=== PATIENT | male | born 1980 | race Caucasian/White ===

== ENCOUNTER 2018-11-01 19:04 | Observation (INO) | payer OTHER ==
[~2018-11-01] VITALS: Ht 172.7 cm; Wt 105.9 kg
[2018-11-01] MEDS ORDERED: NITROGLYCERIN 2% 1 GM OINT PKT TD STA (20:39)
[2018-11-01] MEDS ORDERED: morphine 4 MG/ML VIAL IV STA (20:39)
[2018-11-01] MEDS ORDERED: ONDANSETRON 4 MG INJ IV STA (20:39)
[2018-11-01] MEDS ORDERED: ASPIRIN 325 MG TAB PO STA (20:39)
[2018-11-01] MEDS ORDERED: NITROGLYCERIN (SL) 0.4 MG TAB SL PRN (21:00)
--- NOTE | 2018-11-01 22:07 | ERD ---
ER Documentation Chief Complaint Chief Complaint pressure-like CP since 4PM w/ arm pain, dizziness, REID HPI This is a 38-year-old man who has a history of cardiac disease and all the males in his family. He has no other medical problems other than borderline cholesterol. He says around 4 PM today he was having some substernal chest pressure radiating down the left arm with slight dizziness and some shortness of breath. He has no syncope no recent exertional angina. He says currently he is still having pain but is better. ROS All systems reviewed and are negative except as per history of present illness. Allergies Allergies: Coded Allergies: No Known Allergy (Unverified , 11/01/18) FmHx Family History: No coronary disease Physical Exam Vitals Vital Signs Date Temp Pulse Resp B/P (MAP) Pulse Ox O2 O2 Flow FiO2 Time Delivery Rate 11/01/18 98.2 85 16 125/60 100 19:12 (81) Physical Exam Const: Well-developed, well-nourished Head: Atraumatic, normocephalic Eyes: Normal Conjunctiva, PERRLA, EOMI, normal sclera, no nystagmus ENT: Normal External Ears, Nose and Mouth, moist mucus membranes. Neck: Full range of motion. No meningismus, no lymphadenopathy. Resp: Clear to auscultation bilaterally, no wheezing, rhonchi, rales Cardio: Regular rate and rhythm, no murmurs, S1 S2 present Abd: Soft, non tender x 4, non distended. Normal bowel sounds, no guarding or rebound, no pulsitile abdominal masses or bruits Skin: No petechiae or rashes, no ecchymosis , no maculopapular rash Back: No midline or flank tenderness Ext: No cyanosis, or edema, FROM x 4, normal inspection, neurovascularly intact x 4 Neur: Awake and alert, STR 5/5 x 4, sensation intact x 4, no focal findings, cerebellum intact Psych: Normal Mood and Affect Result Diagram: 11/01/18210411/01/182104 Results 24 hrs Laboratory Tests Test 11/01/18 21:05 White Blood Count 8.5 10^3/ul Red Blood Count 5.74 10^6/ul Hemoglobin 14.0 g/dl Hematocrit 43.9 % Mean Corpuscular Volume 76.5 fl Mean Corpuscular Hemoglobin 24.4 pg Mean Corpuscular Hemoglobin Concent 31.9 g/dl Red Cell Distribution Width 21.5 % Platelet Count 249 10^3/UL Mean Platelet Volume 11.8 fl Immature Granulocytes % 0.500 % Neutrophils % 68.6 % Lymphocytes % 18.0 % Monocytes % 10.1 % Eosinophils % 2.1 % Basophils % 0.7 % Nucleated Red Blood Cells % 0.0 /100WBC Immature Granulocytes # 0.040 10^3/ul Neutrophils # 5.8 10^3/ul Lymphocytes # 1.5 10^3/ul Monocytes # 0.9 10^3/ul Eosinophils # 0.2 10^3/ul Basophils # 0.1 10^3/ul Nucleated Red Blood Cells # 0.0 10^3/ul Sodium Level 143 mmol/L Potassium Level 4.1 mmol/L Chloride Level 102 mmol/L Carbon Dioxide Level 30 mmol/L Anion Gap 11 Blood Urea Nitrogen 20 mg/dl Creatinine 1.49 mg/dl Est Glomerular Filtrat Rate mL/min 53 mL/min Glucose Level 96 mg/dl Calcium Level 9.4 mg/dl Total Bilirubin 0.2 mg/dl Direct Bilirubin 0.00 mg/dl Indirect Bilirubin 0.2 mg/dl Aspartate Amino Transf (AST/SGOT) 23 IU/L Alanine Aminotransferase (ALT/SGPT) 18 IU/L Alkaline Phosphatase 97 IU/L Troponin I 0.066 ng/ml Total Protein 7.6 g/dl Albumin 4.3 g/dl Globulin 3.30 g/dl Albumin/Globulin Ratio 1.30 Current Medications Medications Dose Sig/Lynette Start Time Status Last (Trade) Ordered Route PRN Stop Time Admin Dose Reason Admin Aspirin 325 mg ONCE STAT 11/01/18 DC 11/01/18 (Aspirin) PO 20:39 11/01/18 21:09 20:40 1 inch ONCE STAT 11/01/18 DC 11/01/18 Nitroglycerin TD 20:39 11/01/18 21:09 20:40 (Nitroglyceri n 2% Oint) 1 tab Q5M UP TO 3 11/01/18 11/01/18 Nitroglycerin DOSES PRN 21:00 21:09 SL CHEST (Nitroglyceri PAIN n (Sl Tab) 0.4 Mg) Morphine 4 mg ONCE STAT 11/01/18 DC 11/01/18 Sulfate IV 20:39 11/01/18 21:08 (morphine) 20:40 Ondansetron 4 mg ONCE STAT 11/01/18 DC 11/01/18 HCl (Zofran IV 20:39 11/01/18 21:08 Inj) 20:40 Procedures/MDM MR #: [id number] DOS: 11/01/182038 Ordering MD: JORDEN JOSE DO Location: E/R Room/Bed: PROCEDURE: XR Chest. CLINICAL INDICATION: Chest pain. TECHNIQUE: Portable AP semi erect view of the chest was obtained. COMPARISON: None. FINDINGS: The cardiomediastinal silhouette is within normal limits. The lungs are clear. There is no evidence for pleural effusion, pneumothorax or pulmonary vascular congestion. The osseous structures are intact with no evidence for acute abnormality. RPTAT:HJJR IMPRESSION: No evidence for acute intrathoracic pathology. Physician Gareth Date Time Electronically viewed and signed by Pierre Perez Physician on 11/01/2018 21:30 JR/ CC: JORDEN JOSE DO [id number] EKG: Rate/Rhythm: Sinus rhythm, normal-hyperacute T wave in lead V2 QRS, ST, QT: NORMAL SC, QRS, QT] Impression: Abnormal EKG Patient's troponin is residential positive. He is better after some sublingual nitro here and aspirin. Cardiac Admit MDM: Patient's symptoms are concerning for cardiac cause will require inpatient workup and continuous monitoring. Further w/u for ischemia, arrhythmia, PE or dissection will be deferred to the inpatient team. Departure Diagnosis: Primary Impression: Chest pain Chest pain type: unspecified Qualified Codes: R07.9 - Chest pain, unspecified Condition: Stable JORDEN JOSE DO Nov 01, 2018 22:07
--- NOTE | 2018-11-01 22:25 | HP ---
Date/Time of Note Date/Time of Note DATE: 11/01/18 TIME: 22:25 Assessment/Plan Lines/Catheters IV Catheter Type (from Nrs): Peripheral IV Assessment/Plan Assessment/Plan 38-year-old male with history of ulcerative colitis, depression/anxiety, Asperger's syndrome, history of suicide attempts admitted for chest pain, need to rule out ACS. Father had an ND at the age of 52. His brother, who is patient's uncle has a history of multiple cardiac stents starting when he was in his early 50s PLAN -Continue telemetry monitoring -Trend troponin -Supplemental oxygen, aspirin, statin. As needed nitro -2D echo and cardiology consult -Continue home meds. Adjust as needed -Monitor kidney function closely. Renal ultrasound and nephrology consult as needed Result Diagram: 11/01/18210411/01/182104 Results 24hrs Laboratory Tests Test 11/01/18 21:05 White Blood Count 8.5 Red Blood Count 5.74 Hemoglobin 14.0 Hematocrit 43.9 Mean Corpuscular Volume 76.5 L Mean Corpuscular Hemoglobin 24.4 L Mean Corpuscular Hemoglobin Concent 31.9 L Red Cell Distribution Width 21.5 H Platelet Count 249 Mean Platelet Volume 11.8 H Immature Granulocytes % 0.500 H Neutrophils % 68.6 Lymphocytes % 18.0 Monocytes % 10.1 Eosinophils % 2.1 Basophils % 0.7 Nucleated Red Blood Cells % 0.0 Immature Granulocytes # 0.040 H Neutrophils # 5.8 Lymphocytes # 1.5 Monocytes # 0.9 Eosinophils # 0.2 Basophils # 0.1 Nucleated Red Blood Cells # 0.0 Sodium Level 143 Potassium Level 4.1 Chloride Level 102 Carbon Dioxide Level 30 Anion Gap 11 Blood Urea Nitrogen 20 Creatinine 1.49 H Est Glomerular Filtrat Rate mL/min 53 L Glucose Level 96 Calcium Level 9.4 Total Bilirubin 0.2 Direct Bilirubin 0.00 Indirect Bilirubin 0.2 Aspartate Amino Transf (AST/SGOT) 23 Alanine Aminotransferase (ALT/SGPT) 18 Alkaline Phosphatase 97 Troponin I 0.066 Total Protein 7.6 Albumin 4.3 Globulin 3.30 H Albumin/Globulin Ratio 1.30 HPI/ROS Admit Date/Time Admit Date/Time Hx of Present Illness This is a 38-year-old male with history of ulcerative colitis, depression/anxiety, Asperger's syndrome, history of suicide attempts who presents the ER complaining of chest pain. Chest pain is mainly left-sided with radiation to the left arm. Started a few hours prior to arrival to the ER. Also reported lightheadedness/dizziness and minimal shortness of breath. Pain is located in the left lateral chest with radiation to the left arm. Denied similar symptoms in the past. Patient is accompanied by his and father we re at the bedside. stated that her, the day before, patient was binge drinking. When presented to ER, vitals were stable. Initial troponin negative. EKG shows T wave abnormality in lead V2. Chest x-ray no acute findings. Initial creatinine about 1.5. Denied a history of kidney disease. He said he had a lab work about a week ago, but he does not know the results. PMH/Family/Social Past Medical History Medications Current Medications Nitroglycerin (Nitroglycerin (Sl Tab) 0.4 Mg) 1 tab Q5M UP TO 3 DOSES PRN SL CHEST PAIN Last administered on 11/01/18at 21:09; Admin Dose 1 TAB; Start 11/01/18 at 21:00 Ondansetron HCl (Zofran Inj) 4 mg ER BRIDGE PRN IV NAUSEA AND/OR VOMITING; Start 11/01/18 at 22:30; Stop 11/02/18 at 22:29 Acetaminophen (Tylenol Tab) 650 mg ER BRIDGE PRN PO MILD PAIN(1-3)OR ELEVATED TEMP; Start 11/01/18 at 22:30; Stop 11/02/18 at 22:29 Coded Allergies: diazepam (Verified Adverse Reaction, Unknown, 11/02/18) ELEVATED HEART RATE Social History Smoking Status: Former smoker Exam/Review of Systems Vital Signs Vitals Vital Signs Date Temp Pulse Resp B/P (MAP) Pulse Ox O2 O2 Flow FiO2 Time Delivery Rate 11/01/18 98.2 85 16 125/60 100 19:12 (81) Exam Constitutional: alert, oriented, well developed Head: normocephalic, atraumatic Eyes: EOMI, PERRL Respiratory: clear to auscultation, normal air movement Cardiovascular: regular rate and rhythm, nl pulses Gastrointestinal: soft, non-tender Musculoskeletal: other (Pain elicited on palpation of the left lateral chest.) Extremities: normal pulses YAAKOV RUST MD Nov 01, 2018 22:25
[2018-11-01] MEDS ORDERED: ACETAMINOPHEN 325 MG TAB PO PRN ×2 (22:30)
[2018-11-01] MEDS ORDERED: ALBUTEROL/IPRATROPIUM (NEB) 3 ML AMP HHN PRN (22:30)
[2018-11-01] MEDS ORDERED: ONDANSETRON 4 MG INJ IV PRN ×2 (22:30)
[2018-11-01] MEDS ORDERED: NACL 0.9% 3 ML SYG IV SCH (22:30)
[2018-11-01 23:44] VITALS: PULSE 72
[2018-11-01 23:45] VITALS: BP 106/63; PULSE 73; RESP 18; Ht 172.7 cm; Wt 105.9 kg
[2018-11-02] VITALS (11 sets, daily range): BP systolic 98–114; BP diastolic 56–65; PULSE 62–85; RESP 17–19
[2018-11-02] MEDS ORDERED: VIAG25 PO (00:26)
[2018-11-02] MEDS: NITROGLYCERIN (SL) 0.4 MG TAB SL PRN ×2 (05:58→06:21)
--- NOTE | 2018-11-02 07:00 | NUR ---
EOSS: Pt resting comfortably in stable condition. Pt a/o X4 and on room air. VS stable. Will endorse to oncoming RN.
[2018-11-02] MEDS ORDERED: ASPIRIN 81 MG TAB PO SCH (09:00)
[2018-11-02] MEDS ORDERED: HEPARIN 5,000 UNIT/1 ML VIAL SC SCH (09:00)
[2018-11-02] MEDS ORDERED: SOD FERRIC GLUC COMPLX 125 MG in SOD CHLORIDE 0.9% 100 ML IVPB ONE (13:00)
--- NOTE | 2018-11-02 13:46 | CONS ---
DATE OF ADMISSION: 11/01/2018 DATE OF CONSULTATION: 11/02/2018 TYPE OF CONSULTATION: Cardiology. REASON FOR CONSULTATION: Chest pain, assess for acute coronary syndrome. REQUESTING PHYSICIAN: Donn Bean MD, from the hospitalist service. HISTORY OF PRESENT ILLNESS: Mr. Frias is a 38-year-old male with a history of ulcerative colitis , anxiety, Asperger's syndrome, prior suicidal attempt, significant family history of early cardiovas cular disease with his father having AR and uncle who had an AR in their 50s, who presented with comp laints of substernal chest pain and arm pain. The patient describes the arm pain as shooting down hi s arms, occurring at rest and the chest pain described as a tightness to pressure-like sensation occu rring for hours before admission. Upon arrival, temperature was 98.2, blood pressure 125/60, pulse 8 5, respiratory rate 16, satting 100%. The patient's labs revealed a sodium of 143, potassium 4.1, cr eatinine 1.49, BUN of 20, AST 23, ALT 18, troponin negative, albumin 4.3. TSH 2.76. LDL 121, HDL 45 . White blood cell count 8.5, hemoglobin 14, platelet count 249. The patient underwent a chest x-ra y revealing no evidence of acute intrathoracic pathology. The patient's electrocardiogram revealed n ormal sinus rhythm at a rate of 84, normal axis, normal intervals with nonspecific ST-T wave abnormal ities. The patient was subsequently admitted to the floor and since admit to floor has had 2 further troponins returned both negative. The patient denies chest pain ongoing at this time. PAST MEDICAL HISTORY: As above in HPI. MEDICATIONS CURRENTLY IN HOSPITAL: 1. Aspirin 81 mg daily. 2. Heparin 5000 subQ q.12. 3. Zofran p.r.n. 4. Tylenol p.r.n. 5. Nitroglycerin p.r.n. 6. DuoNeb p.r.n. ALLERGIES: VALIUM. SOCIAL HISTORY: No current tobacco. Social EtOH. No illicit drug use. FAMILY HISTORY: No history of sudden cardiac or early CAD. REVIEW OF SYSTEMS: As above in HPI. CONSTITUTIONAL: No fevers, chills. PULMONARY: No current shortness of breath. CARDIOVASCULAR: Intermittent chest pain. GASTROINTESTINAL: No vomiting. GENITOURINARY: No hematuria. MUSCULOSKELETAL: Degenerative joint disease. PSYCHIATRIC: Positive depression, anxiety. NEUROLOGIC: No documented history of CVA. ENDOCRINE: No documented history of diabetes mellitus. PHYSICAL EXAMINATION: VITAL SIGNS: Temperature of 98, blood pressure 98/63, pulse 73, respiration 19, temperature 97%. GENERAL: The patient is alert, awake, in no acute distress. NECK: JVP is approximately 8 to 9 cm water. CHEST: Fair air movement throughout. HEART: Regular rate and rhythm. Normal S1, S2, I/ systolic murmur, nondisplaced PMI. ABDOMEN: Positive bowel sounds, soft. EXTREMITIES: No edema, 1+ pulses bilaterally posterior tibial. LABORATORIES: As above in HPI, with most recent from today, sodium 143, potassium 4.2, creatinine 1. 0, BUN 17. Troponin negative x3. LDL 121, HDL 45. White blood cell count 6.8, hemoglobin 12.4, krista telet count is 193. IMAGING STUDIES: As above in HPI. No further imaging studies for my review at this time. ELECTROCARDIOGRAM: As above in HPI. No further electrocardiograms for my review at this time. IMPRESSION: 1. Chest pain, assess for acute coronary syndrome with negative troponins x3 at this time. It is so mewhat atypical symptomatology for cardiac etiology at this time. No significant cardiac risk factor s with heavy family history. 2. Abnormal electrocardiogram, assess for acute coronary syndrome with negative troponins x3. 3. Borderline dyslipidemia. RECOMMENDATIONS: 1. At this time, we would maintain the patient on aspirin for prophylaxis against cardiovascular chema nts. 2. We will follow the patient's 2D echo done for assessment of ejection fraction, wall motion and ru le out any major valve abnormalities. 3. We would check a repeat EKG now to assess for any significant changes post rule out. 4. If the patient continues to remain chest pain free and patient's echo returns without significant abnormalities at that time, the patient be reasonable for discharge with outpatient followup includi ng outpatient stress testing and if stress test was negative with significant family history, checkin g CRP levels and additionally taking a calcium score. Thank you for allowing me to take part in the care of this patient. I will continue to follow him ve ry closely with you with further recommendations to be made as the [facility]. Dictated By: JENNIFER BUTTS/ELLA Conf#: [id number] [facility]#: [id number] CC: YAAKOV RUST MD; CAMMIE PAUL; DONN BEAN MD;*End*
--- NOTE | 2018-11-02 13:55 | PN ---
Date/Time of Note Date/Time of Note DATE: 11/02/18 TIME: 13:48 Assessment/Plan VTE Prophylaxis Pharmacological prophylaxis: heparin Lines/Catheters IV [facility] Saline Lock Urinary Cath still in place: No Assessment/Plan Assessment/Plan 8-year-old male with history of ulcerative colitis, depression/anxiety, Asper keira's syndrome, history of suicide attempts admitted for chest pain, need to rule out ACS. Father had an NH at the age of 52. His brother, who is patient's uncle has a history of multiple cardiac stents starting when he was in his early 50s 1. Chest pain: -ACS has been ruled out, -likely KATTY. ?msc spasm 2. hx of ulcerative colitis -.hx 3. hx of depression/anxiety / Asperger's syndrome / history of suicide attempts 4. mild YESSI: resolved 5. hypochromic microcytic anemia : -could be 2/2 #2, episodes of ?GI blood loss 6. + fam hx of early coronary artery disease Dispo: -2D echo pending, -will also have cardiology review to ease patient's mind -if no further intervention, discharge -IV iron for hypochromic anemia. Result Diagram: 11/02/18 0741 11/02/18 0741 Results 24hrs Laboratory Tests Test 11/01/18 21:05 11/02/18 01:09 11/02/18 07:40 11/02/18 07:41 White Blood Count 8.5 6.8 Red Blood Count 5.74 5.21 Hemoglobin 14.0 12.4 L Hematocrit 43.9 40.3 L Mean Corpuscular Volume 76.5 L 77.4 L Mean Corpuscular 24.4 L 23.8 L Hemoglobin Mean Corpuscular 31.9 L 30.8 L Hemoglobin Concent Red Cell Distribution 21.5 H 21.1 H Width Platelet Count 249 193 # Mean Platelet Volume 11.8 H 11.4 H Immature Granulocytes % 0.500 H 0.600 H Neutrophils % 68.6 71.2 Lymphocytes % 18.0 16.5 Monocytes % 10.1 9.0 Eosinophils % 2.1 1.8 Basophils % 0.7 0.9 Nucleated Red Blood 0.0 0.0 Cells % Immature Granulocytes # 0.040 H 0.040 H Neutrophils # 5.8 4.9 Lymphocytes # 1.5 1.1 Monocytes # 0.9 0.6 Eosinophils # 0.2 0.1 Basophils # 0.1 0.1 Nucleated Red Blood 0.0 0.0 Cells # Sodium Level 143 143 Potassium Level 4.1 4.2 Chloride Level 102 104 Carbon Dioxide Level 30 30 Anion Gap 11 9 Blood Urea Nitrogen 20 17 Creatinine 1.49 H 1.05 Est Glomerular Filtrat 53 L > 60 Rate mL/min Glucose Level 96 98 Calcium Level 9.4 8.9 Total Bilirubin 0.2 0.5 Direct Bilirubin 0.00 0.00 Indirect Bilirubin 0.2 0.5 Aspartate Amino 23 17 Transf (AST/SGOT) Alanine 18 18 Aminotransferase (ALT/SG PT) Alkaline Phosphatase 97 77 Troponin I 0.066 0.061 0.072 Total Protein 7.6 6.2 # Albumin 4.3 3.6 Globulin 3.30 H 2.60 Albumin/Globulin Ratio 1.30 1.38 Creatine Kinase 52 47 Creatine Kinase Index 0.6 0.7 Creatinine Kinase MB 0.33 0.34 (Mass) Hemoglobin A1c 5.1 Magnesium Level 2.0 Triglycerides Level 91 Cholesterol Level 184 LDL Cholesterol, 121 Calculated HDL Cholesterol 45 Cholesterol/HDL Ratio 4.0 Thyroid Stimulating 2.760 Hormone (TSH) Subjective 24 Hr Interval Summary Free Text/Dictation no more chest pain Exam/Review of Systems Vital Signs Vitals Vital Signs Date Temp Pulse Resp B/P (MAP) Pulse Ox O2 O2 Flow FiO2 Time Delivery Rate 11/02/18 73 12:26 11/02/18 98.0 19 98/63 (75) 97 11:20 11/01/18 Room Air 23:31 Exam General: A&O x3, answering questions appropriately HEENT: NC/ AT. PERRL. EOM intact Neck: supple CVS: S1, S2, RRR. no murmurs. no pain on chest wall palpation Lungs: CTA b/l. no wheezing or rhonchi Abd: soft, nontender, +BS Ext: moving all extremities skin: no rashes Medications Medications Current Medications Ondansetron HCl (Zofran Inj) 4 mg ER BRIDGE PRN IV NAUSEA AND/OR VOMITING; Start 11/01/18 at 22:30; Stop 11/02/18 at 22:29 Acetaminophen (Tylenol Tab) 650 mg ER BRIDGE PRN PO MILD PAIN(1-3)OR ELEVATED TEMP Last administered on 11/02/18 00:27; Admin Dose 650 MG; Start 11/01/18 at 22:30; Stop 11/02/18 at 22:29 IV Flush (NS 3 ml) 3 ml PER PROTOCOL IV ; Start 11/01/18 at 22:30 Ondansetron HCl (Zofran Inj) 4 mg Q6H PRN IV NAUSEA AND/OR VOMITING; Start 11/01/18 at 22:30 Aspirin (Aspirin) 81 mg DAILY PO Last administered on 11/02/18 08:31; Admin Dose 81 MG; Start 11/02/18 at 09:00 Nitroglycerin (Nitroglycerin (Sl Tab) 0.4 Mg) 1 tab Q5M PRN SL CHEST PAIN Last administered on 11/02/18 06:21; Admin Dose 1 TAB; Start 11/01/18 at 22:30 Acetaminophen (Tylenol Tab) 650 mg Q6H PRN PO PAIN LEVEL 1-3 OR FEVER Last administered on 11/02/18 06:17; Admin Dose 650 MG; Start 11/01/18 at 22:30 Heparin Sodium (Porcine) (Heparin (5000 Units/1ml)) 5,000 unit Q12 SC Last administered on 11/02/18 08:37; Admin Dose 5,000 UNIT; Start 11/02/18 at 09:00 Albuterol/ Ipratropium (Duoneb) 3 ml Q2H RESP THERAPY PRN HHN SHORTNESS OF BREATH; Start 11/01/18 at 22:30 Ferric Sodium Gluconate Complex 125 mg/Sodium Chloride 100 ml @ 100 mls/hr ONCE ONCE IVPB Last administered on 11/02/18at 12:00; Admin Dose 100 MLS/HR; Start 11/02/18 at 13:00; Stop 11/02/18 at 13:59 DONN BEAN Nov 02, 2018 13:55
--- NOTE | 2018-11-02 14:22 | RADRPT ---
Echocardiogram Report Patient Name: SINAN RUBIO Gender: Male Date: 1980 Study Date: 02-Nov-2018 Baseball Winder: Layla Buckner [facility] Location: [facility] Ref. Physician: DONN BEAN Quality: Adequate Procedures: Transthoracic echocardiogram with complete 2D, M-Mode, and doppler examination. Indications: Chest Pain. 2D/M Mode Doppler Measurement Value Normal Ranges Measurement Value Normal Ranges LVIDd 2D 4.8 3.5 - 5.6 cm AV Peak Jimbo 1.4 m/sec LVIDs 2D 3.0 2.1 - 4.1 cm AV Peak PG 8.0 mmHg LVPWd 2D 0.9 0.6 - 1.1 cm LVOT Peak Jimbo 1.0 m/sec IVSd 2D 0.7 0.6 - 1.1 cm LVOT Peak PG 4.0 mmHg AoR Diam 2D 2.7 2.0 - 3.7 cm MV E Peak Jimbo 0.9 m/sec LA/Ao 2D 1 0 - 1 MV A Peak Jimbo 0.7 m/sec LA Dimen 2D 3.0 2.3 - 4.0 cm MV E/A 1.2 MV Decel Time 190 msec Lat E` Jimbo 0.1 m/sec Lateral E/E` 8.2 MV E/A 1.2 TR Peak Jimbo 2.5 m/sec TR Peak PG 25.0 mmHg RVSP 28.0 mmHg RA Pressure 3.0 Findings Left Ventricle: Lower limits of normal systolic function. Normal left ventricular cavity size. Normal left ventricular wall thickness. Ejection fraction is visually estimated at 5055 %. Tissue Doppler/Mitral Doppler indices are consistent with impaired relaxation (Stage I diastolic dysfunction). Right Ventricle: Normal right ventricular size. Normal right ventricular systolic function. Left Atrium: The left atrium is normal in size. Right Atrium: The right atrium is normal in size. Mitral Valve: Normal appearance of the mitral valve. Mild mitral annular calcification. Trace mitral regurgitation. Aortic Valve: Normal appearance of the aortic valve. No significant aortic stenosis or insufficiency. Tricuspid Valve: Normal appearance of the tricuspid valve. Estimated peak PA systolic pressure 28 mmHg. There is trace tricuspid regurgitation. Pulmonic Valve: Pulmonic valve not well visualized. Pericardium: Normal pericardium with no significant pericardial effusion. Aorta: Normal aortic root. IVC: Normal size and normal respiratory collapse consistent with normal right atrial pressure. Conclusions Lower limits of normal systolic function. Normal left ventricular cavity size. Normal left ventricular wall thickness. Ejection fraction is visually estimated at 50-55 %. Tissue Doppler/Mitral Doppler indices are consistent with impaired relaxation (Stage I diastolic dysfunction). Normal appearance of the mitral valve. Mild mitral annular calcification. Trace mitral regurgitation. Normal appearance of the tricuspid valve. Estimated peak PA systolic pressure 28 mmHg. There is trace tricuspid regurgitation. Electronically Signed By: Tyrell Sullivan 02-Nov-2018 14:21:17 -0800 Patient Name: SINAN RUBIO Study Date: 02-Nov-2018 [id number]
--- NOTE | 2018-11-02 18:18 | PDOCDIS ---
Discharge Instructions CONDITION [id number] Patient Condition: [id number] Stable FOLLOW UP/APPOINTMENTS Follow-up Plan 1. Follow up with Dr. Tyrell Sullivan, as soon as possible, in order to schedule outpatient stress test 2. Please take sublingual nitroglycerin as needed for recurrent chest pain per cellular equipment repairer, Dr. uSllivan, return to ED if chest pain returns MARYANNE NIETO Nov 02, 2018 18:18
[2018-11-02] MEDS ORDERED: NITR0.4T32 SL (18:21)
--- NOTE | 2018-11-02 18:21 | QN ---
Documentation Comment On-call hospitalist as to help facilitate discharge for patient, patient was seen by cardiology, who also read echo, within normal limits per instructional design specialist, spoke with instructional design specialist who stated that patient could be discharged to be seen by outpatient setting in order to get a stress test. Patient was offered inpatient stress test however patient wanted to go home and stated he will follow-up and to get outpatient stress test. Cardiology recommended the patient to be sent home with some as needed nitroglycerin and that due to his young age a daily aspirin is not yet necessary. MARYANNE NIETO Nov 02, 2018 18:21
--- NOTE | 2018-11-02 18:41 | NUR ---
Discharge Pt ao x 4 and stable for discharge to home. Dr. Martin came at bedside and helped with Pt discharge. Discharge packet and new prescriptions given to the Pt. Education provided and Pt stated understanding. Pt's at bedside. All needs met and all questions answered. Dr. Sullivan information was provided to the Pt for follow up outpatient. gravity meter operator d/c'd and IV d/c'd. All belongings returned to Pt. Pt refused to be escorted via wheelchair. Per Pt, "I dont need a wheelchair I'm good to walk, been laying in bed for awhile now." Charge nurse aware.
--- NOTE | 2018-11-02 22:02 | DS ---
DATE OF ADMISSION: 11/01/2018 DATE OF DISCHARGE: 11/02/2018 FINAL DIAGNOSES: 1. Chest pain. The patient has ruled out for acute coronary syndrome, atypical symptomatology, like ly musculoskeletal. 2. Abnormal EKG. 3. Borderline dyslipidemia. 4. History of erectile dysfunction. 5. History of ulcerative colitis. 6. History of anxiety and depression, and Asperger's syndrome. 7. Mild YESSI, which has resolved. 8. Hypochromic microcytic anemia, which could be secondary to history of ulcerative colitis. 9. Positive family history of early coronary artery disease. CONSULTS ON THE CASE: Dr. Tyrell Sullivan for cardiology. INTERVENTIONS: The patient ruled out for an acute coronary syndrome with 3 negative cardiac enzymes. He also had a 2D echocardiogram that did not show any significant valvular deficits, showed ejectio n fraction of 50% to 55% and stage I diastolic dysfunction. HOSPITAL COURSE: Full details are available in chart for review. In summary, this is a 38-year-old male had a short hospitalization course after had presented with left-sided chest pain which is more located in his mid axillary/lateral chest region that did not resolve, he was given nitroglycerin in the emergency room per report. The patient also does have a family history of significant coronary a rtery disease, male in his family, in the early 50s. He was admitted to rule out ACS. We ruled out a 2D echo that was unremarkable, was read by Cardiology. Cardiology did recommend a stress test if p atient became symptomatic again. However, the patient opted to do this as an outpatient and requeste d to be discharged instead. He was discharged in stable condition after cardiology clearance. DISCHARGE MEDICATIONS: The patient was on discharge on sublingual nitroglycerin as needed. DISCHARGE ACTIVITIES: As tolerated. Follow up with her primary care doctor within the next 1 to 2 w eeks to ensure continued resolution of syndrome and for outpatient cardiology referral for possible s tress test. ACTIVITIES: As tolerated. DIET: Low cholesterol, low fat. Time spent on discharge coordination was more than 1 hour. Dictated By: DONN BEAN MD BA/NTS Conf#: [id number] DID#: [id number]
--- NOTE | 2018-11-03 19:38 | RADRPT ---
Vent Rate: 80 bpm RR Interval: 0 msec CO Interval: 142 msec QRS Duration: 98 msec QT Interval: 378 msec QTC Interval: 435 msec P-R-T [place]: 57 - 65 - 53 degrees Normal sinus rhythm Normal ECG Electronically Signed By: Arnaud Callejas [id number]
== END 2018-11-02 18:41 | disposition home or self-care (01) ==
LOC: E/R 19:04 → TEL 22:10
PROVIDERS: ADMIT Internal Medicine; ATTEND Family Medicine
DX: R07.9 Chest pain, unspecified (principal); R42 Dizziness and giddiness; R51 Headache; R94.39 Abnormal result of other cardiovascular function study; F84.5 Asperger's syndrome; D50.9 Iron deficiency anemia, unspecified
CPT/HCPCS: 36415; 71045; 80053; 80061; 82550; 82553; 83036; 83540; 83735; 84443; 84484; 85025; 86140; 93005; 93306; 96374; 96375; 99285; G0378; J1644; J2270; J2405; J2916